=== PATIENT | female | born 1995 | race Two or more races ===

== ENCOUNTER 2017-10-21 03:30 | Emergency (ER) | payer SELFPAY ==
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
--- NOTE | 2017-10-21 05:33 | RADIOLOGY REPORT (SQ) ---
EXAM DESCRIPTION: CT CERVICAL SPINE WITHOUT CLINICAL HISTORY: fall, left arm tingling COMPARISON: None available TECHNIQUE: Axial CT of the cervical spine obtained without contrast. FINDINGS: Alignment of the cervical spine is maintained without evidence of subluxation. The atlantoaxial, atlantodental, and occipitoatlantal intervals are preserved. No fracture identified. Vertebral body height preserved. Prevertebral soft tissues are unremarkable. Intervertebral disc height preserved. Visualized skull base is intact. No fracture of the visualized facial bones. Visualized mastoid air cells and paranasal sinuses are well aerated. Visualized thyroid is unremarkable. No cervical lymphadenopathy. No pneumothorax in the visualized lung apices. DLP: 247.56 mGy-cm IMPRESSION: 1. No acute fracture or subluxation of the cervical spine. This exam was performed according to our departmental dose-optimization program, which includes automated exposure control, adjustment of the mA and/or kV according to patient size and/or use of iterative reconstruction technique.
--- NOTE | 2017-10-21 05:51 | RADIOLOGY REPORT (SQ) ---
EXAM DESCRIPTION: L SPINE WHOLE CLINICAL HISTORY: fall, pain COMPARISON: None. FINDINGS: 4 views of the lumbar spine. 5 nonrib-bearing lumbar vertebrae. Intervertebral disc height preserved. No subluxation. Pedicles identified throughout. No evidence of spondylolysis or spondylolisthesis. Visualized portions of the sacrum are unremarkable. Abdominal soft tissues are unremarkable. No fractures the visualized ribs. IMPRESSION: 1. No acute abnormality of the lumbar spine by plain film criteria.
--- NOTE | 2017-10-21 05:52 | RADIOLOGY REPORT (SQ) ---
EXAM DESCRIPTION: T SPINE AP/LAT CLINICAL HISTORY: fall pain COMPARISON: None. FINDINGS: 2 views of the thoracic spine. T1 not well evaluated on lateral view due to overlying soft tissues. Vertebral body height and intervertebral disc height preserved. No subluxation. Pedicles identified throughout. No widening of the paraspinous lines. No abnormalities of the mediastinum or visualized lungs. Upper abdominal soft tissues unremarkable. No fracture of the visualized ribs. IMPRESSION: 1. No acute abnormality of the thoracic spine by plain film criteria.
[2017-10-21] MEDS ORDERED: ACETAMINOPHEN 325 MG TABLET PO ONE (06:01)
[2017-10-21 07:13] VITALS: BP 138/96
== END 2017-10-21 06:30 | disposition home or self-care (01) ==
LOC: ER 03:30
DX: S09.90XA Unspecified injury of head, initial encounter (principal); Y04.8XXA Assault by other bodily force, initial encounter; Y93.89 Activity, other specified; R20.0 Anesthesia of skin; R20.2 Paresthesia of skin; M54.9 Dorsalgia, unspecified
CPT/HCPCS: 36415; 70450; 72070; 72110; 72125; 80307; 84703; 99284

== ENCOUNTER 2018-06-12 22:22 | Emergency (ER) | payer OTHER ==
[2018-06-13] MEDS ORDERED: NORMAL SALINE 1000 ML 1,000 ML IV ONE (00:12)
[2018-06-13] MEDS ORDERED: PROCHLORPERAZINE EDISYLATE INJ 10 MG/2 ML VIAL IM ONE (00:12)
[2018-06-13] MEDS ORDERED: KETOROLAC TROMETHAMINE INJ/PF 30 MG/1 ML SDV IV ONE (00:12)
[2018-06-13] MEDS ORDERED: DIPHENHYDRAMINE HCL 25 MG CAPSULE PO ONE (00:12)
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
[2018-06-13 01:25] VITALS: BP 140/90
== END 2018-06-13 01:23 | disposition home or self-care (01) ==
LOC: ER 22:22
DX: S09.90XA Unspecified injury of head, initial encounter (principal); R51 Headache; Y04.2XXA Assault by strike against or bumped into by another person, initial encounter; Y92.199 Unspecified place in other specified residential institution as the place of occurrence of the external cause; Y99.0 Civilian activity done for income or pay
CPT/HCPCS: 99283; 96372; 96361; 96374; J1885; J0780; J7030

== ENCOUNTER 2019-05-29 17:17 | Emergency (ER) | payer MEDICAID, OTHER ==
--- NOTE | 2019-05-29 18:26 | ER Document Report ---
ED Medical Screen (RME) - General Chief Complaint: Blood Pressure Problem Stated Complaint: BLOOD PRESSURE ISSUES Time Seen by Provider: 05/29/19 18:11 Primary Care Provider: SIMON TRUONG PA [Primary Care Provider] - Follow up as needed Mode of Arrival: Ambulatory Information source: Patient Notes: Patient is an otherwise healthy 24-year-old female presenting to the emergency department with elevated blood pressure, dizziness and fatigue. Patient reports she is a and is approximately 8 or 9 weeks . She does report multiple elevated blood pressures over the last year. She denies any documented history of hypertension. Exam: Lung sounds clear and equal bilaterally. Patient alert, oriented, answering all questions appropriately. I have greeted and performed a rapid initial assessment of this patient. A comprehensive ED assessment and evaluation of the patient, analysis of test results and completion of the medical decision making process will be conducted by additional ED providers. I have specifically instructed the patient or family members with the patient to immediately return to any nursing staff should anything change in the patient's condition or with their chief complaint. This medical record was dictated with voice recognizing software. There may be grammatical, syntax errors that are unintended. TRAVEL OUTSIDE OF THE [place] IN LAST 30 DAYS: No - Related Data Allergies/Adverse Reactions: No Known Allergies Allergy (Verified 10/21/17 03:39) Past Medical History - Social History Frequency of alcohol use: None Drug Abuse: None Renal/ Medical History: Denies: Hx Peritoneal Dialysis - Immunizations Immunizations up to date: Yes Physical Exam - Vital signs Vitals: Temp Pulse Resp BP Pulse Ox 99.1 F 79 18 165/86 H 100 05/29/19 17:32 05/29/19 17:32 05/29/19 17:32 05/29/19 17:32 05/29/19 17:32 Course - Vital Signs Vital signs: Temp Pulse Resp BP Pulse Ox 99.1 F 79 18 165/86 H 100 05/29/19 17:32 05/29/19 17:32 05/29/19 17:32 05/29/19 17:32 05/29/19 17:32 Doctor's Discharge - Discharge Referrals: SIMON TRUONG PA [Primary Care Provider] - Follow up as needed
[2019-05-29 18:47] LABS: ABSOLUTE BASOPHILS # (AUTO) 0.1 10^3/uL (0.0-0.2); ABSOLUTE EOSINOPHILS # (AUTO) 0.2 10^3/uL (0.0-0.6); ABSOLUTE LYMPHOCYTES (AUTO) 2.6 10^3/uL (0.5-4.7); ABSOLUTE MONOCYTES (AUTO) 0.8 10^3/uL (0.1-1.4); ABSOLUTE NEUT (AUTO) 7.2 10^3/uL (1.7-8.2); BASOPHILS % (AUTO) 0.6 % (0-2); EOSINOPHILS % (AUTO) 2.2 % (0-6); HEMATOCRIT 39.5 % (36.0-47.0); HEMOGLOBIN 13.5 g/dL (12.0-15.5); LYMPHOCYTES % (AUTO) 23.8 % (13-45); MEAN CORPUSCULAR HEMOGLOBIN 31.5 pg (27.0-33.4); MEAN CORPUSCULAR HGB CONC 34.2 g/dL (32.0-36.0); MEAN CORPUSCULAR VOLUME 92 fl (80-97); PLATELET COUNT 224 10^3/uL (150-450); RED BLOOD COUNT 4.29 10^6/uL (3.72-5.28); RED CELL DISTRIBUTION WIDTH 12.3 % (11.5-14.0); SEGMENTED NEUTROPHILS % (AUTO) 66.4 % (42-78); TOTAL CELLS COUNTED % (AUTO) 100 %; WHITE BLOOD COUNT 10.9 10^3/uL (4.0-10.5)
[2019-05-29 19:00] LABS: APPEARANCE,URINE SLIGHTLY-CLOUDY; BILIRUBIN,URINE NEGATIVE (NEGATIVE); COLOR,URINE YELLOW; GLUCOSE, URINE NEGATIVE (NEGATIVE); KETONES,URINE NEGATIVE (NEGATIVE); LEUKOCYTE ESTERASE,URINE MODERATE (NEGATIVE); NITRITE,URINE NEGATIVE (NEGATIVE); PROTEIN,URINE NEGATIVE (NEGATIVE); URINE SPECIFIC GRAVITY 1.013; UROBILINOGEN,URINE NEGATIVE mg/dL (<2.0)
[2019-05-29 19:04] LABS: ALBUMIN 3.9 g/dL (3.5-5.0); ALKALINE PHOSPHATASE 74 U/L (38-126); ANION GAP 10 (5-19); ASPARTATE AMINO TRANSFERASE 19 U/L (14-36); BILIRUBIN,DIRECT 0.1 mg/dL (0.0-0.4); BILIRUBIN,TOTAL 0.3 mg/dL (0.2-1.3); BLOOD UREA NITROGEN 8 mg/dL (7-20); CALCIUM 8.8 mg/dL (8.4-10.2); CARBON DIOXIDE 23 mmol/L (22-30); CHLORIDE 103 mmol/L (98-107); GLUCOSE 93 mg/dL (75-110); POTASSIUM 3.7 mmol/L (3.6-5.0); TOTAL PROTEIN 6.8 g/dL (6.3-8.2)
--- NOTE | 2019-05-29 19:55 | ER Document Report ---
ED General - General Chief Complaint: Blood Pressure Problem Stated Complaint: BLOOD PRESSURE ISSUES Time Seen by Provider: 05/29/19 18:11 Primary Care Provider: SIMON TRUONG PA [PHYSICIAN ATHLETIC DIRECTOR] - Follow up as needed Mode of Arrival: Ambulatory TRAVEL OUTSIDE OF THE [place] IN LAST 30 DAYS: No - HPI Patient complains to provider of: elevated bp Notes: patient is approx 7 weeks presenting for elevated bp she tells me she had bp before finding out she was but is not on treatment no belly pain, vaginal bleeding minimal nausea but w/o vomiting no urinary pain - Related Data Allergies/Adverse Reactions: No Known Allergies Allergy (Verified 10/21/17 03:39) Past Medical History - General Information source: Patient - Social History Smoking Status: Never Smoker Frequency of alcohol use: None Drug Abuse: None Family History: Reviewed & Not Pertinent Patient has suicidal ideation: No Patient has homicidal ideation: No Renal/ Medical History: Denies: Hx Peritoneal Dialysis - Immunizations Immunizations up to date: Yes Review of Systems - Review of Systems Constitutional: No symptoms reported EENT: No symptoms reported Cardiovascular: No symptoms reported Respiratory: No symptoms reported Gastrointestinal: No symptoms reported Genitourinary: No symptoms reported Female Genitourinary: No symptoms reported Musculoskeletal: No symptoms reported Skin: No symptoms reported Hematologic/Lymphatic: No symptoms reported Neurological/Psychological: No symptoms reported Physical Exam - Vital signs Vitals: Temp Pulse Resp BP Pulse Ox 99.1 F 79 18 165/86 H 100 05/29/19 17:32 05/29/19 17:32 05/29/19 17:32 05/29/19 17:32 05/29/19 17:32 Interpretation: Normal - General General appearance: Appears well, Alert - HEENT Head: Normocephalic, Atraumatic Eyes: Normal Pupils: PERRL - Respiratory Respiratory status: No respiratory distress Chest status: Nontender Breath sounds: Normal Chest palpation: Normal - Cardiovascular Rhythm: Regular Heart sounds: Normal auscultation Murmur: No - Abdominal Inspection: Normal Distension: No distension Bowel sounds: Normal Tenderness: Nontender Organomegaly: No organomegaly - Back Back: Normal, Nontender - Extremities General upper extremity: Normal inspection, Nontender, Normal color, Normal ROM, Normal temperature General lower extremity: Normal inspection, Nontender, Normal color, Normal ROM, Normal temperature, Normal weight bearing. No: Ledy's sign - Neurological Neuro grossly intact: Yes Cognition: Normal Orientation: AAOx4 [place] Coma Scale Eye Opening: Spontaneous [place]el[place] Coma Scale Verbal: Oriented [place] Coma Scale Motor: Obeys Commands [place] Coma Scale Total: 15 Speech: Normal Motor strength normal: LUE, RUE, LLE, RLE Sensory: Normal - Psychological Associated symptoms: Normal affect, Normal mood - Skin Skin Temperature: Warm Skin Moisture: Dry Skin Color: Normal Course - Re-evaluation Re-evalutation: 05/29/19 19:52 BP is elevated - no proteinuria recommend following up with obgyn for further care of elevated bp and recommend keeping a bp log and taking a vitamin will rx amoxil for uti on ua - Vital Signs Vital signs: Temp Pulse Resp BP Pulse Ox 98.4 F 91 16 152/99 H 100 05/29/19 19:47 05/29/19 19:47 05/29/19 19:47 05/29/19 19:47 05/29/19 17:32 - Laboratory Result Diagrams: 05/29/19 18:35 05/29/19 18:35 Laboratory results interpreted by me: 05/29/19 05/29/19 05/29/19 18:35 18:35 18:35 WBC 10.9 H Sodium 136.2 L Creatinine 0.43 L Ur Leukocyte Esterase MODERATE H Discharge - Discharge Clinical Impression: Elevated blood pressure reading UTI (urinary tract infection) during Qualifiers: Trimester: first trimester Qualified Code(s): O23.41 - Unspecified infection of urinary tract in , first trimester Condition: Stable Disposition: HOME, SELF-CARE Instructions: Amoxicillin ([facility]), Urinary Tract Infection ([facility]) Additional Instructions: it is very important to keep a daily log of your blood pressure readings and to follow up with an OBGYN to establish care. Take a vitamin daily please Prescriptions: Amoxicillin 1 tab PO BID #20 tab Referrals: SIMON TRUONG PA [PHYSICIAN ATHLETIC DIRECTOR] - Follow up as needed
[2019-05-29 20:33] VITALS: BP 154/95
== END 2019-05-29 20:29 | disposition home or self-care (01) ==
LOC: ER 17:17
DX: O26.891 Other specified pregnancy related conditions, first trimester (principal); R03.0 Elevated blood-pressure reading, without diagnosis of hypertension; R11.0 Nausea; O23.41 Unspecified infection of urinary tract in pregnancy, first trimester; Z3A.00 Weeks of gestation of pregnancy not specified
CPT/HCPCS: 36415; 80053; 81001; 85025; 99284